=== PATIENT | female | born 1995 | race Caucasian/White ===

== ENCOUNTER 2017-03-03 22:28 | Emergency (ER) | payer OTHER ==
[~2017-03-03] VITALS: Ht 162.6 cm; Wt 77.3 kg
[2017-03-03 22:33] VITALS: TEMP 99.1
[2017-03-03] MEDS ORDERED: BIRTH CONTROL PO (22:38)
[2017-03-03 22:54] LABS: COLLECTION METHOD CLEAN CATCH
[2017-03-03 23:01] LABS: MUCOUS Present /lpf; PH 6 (5-8); URINE APPEARANCE Cloudy; URINE BACTERIA Rare /hpf; URINE BILIRUBIN Negative (NEGATIVE); URINE BLOOD 3+ (NEGATIVE); URINE COLOR Yellow; URINE GLUCOSE Negative (NEGATIVE); URINE KETONE Negative (NEGATIVE); URINE LEUKOCYTE ESTERASE 3+ (NEGATIVE); URINE PROTEIN(semi-quant) 2+ (NEGATIVE); URINE RBC >50 /hpf; URINE UROBILINOGEN Negative (NEGATIVE); URINE WBC >50 /hpf
[2017-03-03] MEDS ORDERED: OMNICEF 300MG300 MG PO (23:19)
[2017-03-04 00:28] VITALS: BP 138/86; PULSE 96
== END 2017-03-04 00:37 | disposition home or self-care (01) ==
LOC: COL.ER 22:28
PROVIDERS: Emergency Medicine
DX: N39.0 Urinary tract infection, site not specified (principal)
CPT/HCPCS: J0696; J7030